=== PATIENT | male | born 1985 | race Caucasian/White ===

== ENCOUNTER 2016-07-27 01:31 | Emergency (ER) | payer OTHER ==
[2016-07-27 01:53] VITALS: BP 119/79; PULSE 67; TEMP 97.6; BMI 36.6
--- NOTE | 2016-07-27 02:02 | PDOC ---
History of Present Illness - General History Source: Patient <Tejas Gutierrez - Last Filed: 07/27/16 01:59> - General History Source: Patient Exam Limitations: No Limitations - History of Present Illness Initial Comments: 07/27/16 02:09 The patient is a 31 year old male with significant past medical history of asthma who presents to the ED with 4 days of epigastric discomfort. Patient describes pain as pressure sensation that is relieved with his inhaler. His pain comes twice a day, in the morning and night. Patient states his pain is not consistent with his usual asthma exacerbations. He also has complaints of coughing. He denies back pain, chest pain, and SOB. Patient admits to having a poor appetite and eats twice a day, morning and nights. The patient denies fever, chills, nausea, vomiting, and diarrhea. Allergies: NKDA Social History: No alcohol, tobacco, or drug use reported. Past Surgical History: None reported PCP: Dr. Alberto Koroma <Debbie Amezcua - Last Filed: 07/27/16 02:31> - General Chief Complaint: Chest Pain Stated Complaint: CHEST DISCOMFORT Time Seen by Provider: 07/27/16 01:54 Past History - Past Medical History Asthma: Yes - Psycho/Social/Smoking Cessation Hx Anxiety: No Suicidal Ideation: No Smoking Status: No Smoking History: Never smoked Have you smoked in the past 12 months: No Number of Cigarettes Smoked Daily: 0 Information on smoking cessation initiated: No Hx Alcohol Use: No Drug/Substance Use Hx: No Substance Use Type: None <Tejas Gutierrez - Last Filed: 07/27/16 01:59> <Debbie Amezcua - Last Filed: 07/27/16 02:31> - Past Medical History Allergies/Adverse Reactions: Allergies Allergy/AdvReac Type Severity Reaction Status Date / Time No Known Allergies Allergy Verified 03/18/16 15:35 Home Medications: Ambulatory Orders Albuterol Sulfate Inhaler - [Ventolin HFA Inhaler -] 1 - 2 inh PO Q4H #1 inhaler 08/04/13 Ibuprofen 400 mg PO Q6H #28 tablet 03/18/16 Review of Systems - Review of Systems Able to Perform ROS?: Yes Comments:: 07/27/16 02:10 +epigastric pressure, cough Absent: fever, chills, nausea, vomiting, diarrhea, chest pain, back pain, SOB <Debbie Amezcua - Last Filed: 07/27/16 02:31> *Physical Exam - Vital Signs Last Vital Signs Temp Pulse Resp BP Pulse Ox 97.6 F 67 18 119/79 97 07/27/16 01:50 07/27/16 01:50 07/27/16 01:50 07/27/16 01:50 07/27/16 01:50 - Physical Exam General Appearance: Yes: Nourished, Appropriately Dressed. No: Apparent Distress HEENT: positive: Normal ENT Inspection Neck: positive: Supple. negative: Tender Respiratory/Chest: positive: Lungs Clear, Normal Breath Sounds. negative: Chest Tender, Respiratory Distress Cardiovascular: positive: Regular Rhythm, Regular Rate Gastrointestinal/Abdominal: positive: Normal Bowel Sounds, Soft. negative: Tender Musculoskeletal: positive: Normal Inspection Integumentary: positive: Normal Color <Tejas Gutierrez - Last Filed: 07/27/16 01:59> - Vital Signs Last Vital Signs Temp Pulse Resp BP Pulse Ox 97.6 F 67 18 119/79 97 07/27/16 01:50 07/27/16 01:50 07/27/16 01:50 07/27/16 01:50 07/27/16 01:50 <Debbie Amezcua - Last Filed: 07/27/16 02:31> Heart Score/ECG Review - ECG Impressions Comment:: 07/27/16 02:30 NSR @67bpm Nonspecific intraventricular conduction delay Borderline ECG <Debbie Amezcua - Last Filed: 07/27/16 02:31> Progress Note - Progress Note Progress Note: poor historian but must likely gi in origin. uses the pump but then has bfast and so at nights d/c home <Tejas Gutierrez - Last Filed: 07/27/16 01:59> *DC/Admit/Observation/Transfer <Tejas Gutierrez - Last Filed: 07/27/16 01:59> - Attestations Scribe Attestion: 07/27/16 02:10 Documentation prepared by Debbie Amezcua, acting as biomedical field service engineer for Tejas Gutierrez MD <Debbie Amezcua - Last Filed: 07/27/16 02:31> Diagnosis at time of Disposition: Epigastric pain - Discharge Dispostion Disposition: HOME Condition at time of disposition: Good - Referrals Referrals: Alberto Koroma MD [Primary Care Provider] - Call tomorrow - Patient Instructions Additional Instructions: PLENTY OF FLUIDS (WATER/GATORADE) BLAND DIET, ADVANCE TOLERATED EAT FREQUENT, SMALL MEALS THROUGHOUT THE DAY MAALOX, 30 ml 1/2 HOUR AFTER MEALS AND AT BED TIME RETURN IF FEVER, VOMITING, SEVERE PAIN CALL DR. KOROMA TOMORROW
--- NOTE | 2016-07-27 16:20 | EKG ---
Test Reason : Blood Pressure : / mmHG Vent. Rate : 067 BPM Atrial Rate : 067 BPM P-R Int : 174 ms QRS Dur : 118 ms QT Int : 428 ms P-R-T Axes : 054 -11 030 degrees QTc Int : 452 ms NORMAL SINUS RHYTHM NON-SPECIFIC INTRA-VENTRICULAR CONDUCTION DELAY BORDERLINE ECG WHEN COMPARED WITH ECG OF 02-OCT-2011 09:54, NO SIGNIFICANT CHANGE WAS FOUND Confirmed by GREGG DURAN MD ([id number]) on 07/27/2016 4:20:15 PM Referred By: Confirmed By:GREGG DURAN MD
== END 2016-07-27 02:09 | disposition home or self-care (01) ==
LOC: JER 01:31
DX: R10.13 Epigastric pain (principal)
CPT/HCPCS: 93005; 93010; 99281-25